=== PATIENT | female | born 1975 | race Two or more races ===

== ENCOUNTER 2017-10-28 11:43 | Emergency (ER) | payer OTHER ==
[~2017-10-28] VITALS: Ht 170.2 cm; Wt 62.1 kg
[2017-10-28 11:43] VITALS: BP 118/51
== END 2017-10-28 12:36 | disposition home or self-care (01) ==
LOC: ER 11:45
DX: S00.83XA Contusion of other part of head, initial encounter (principal); F10.10 Alcohol abuse, uncomplicated; V43.52XA Car driver injured in collision with other type car in traffic accident, initial encounter; Y93.89 Activity, other specified; Y92.89 Other specified places as the place of occurrence of the external cause; Y99.8 Other external cause status
CPT/HCPCS: 99282; A4606; Z7610